=== PATIENT | male | born 1935 | race Two or more races ===

== ENCOUNTER 2020-01-05 12:27 | Inpatient (IN) | payer BC ==
[2020-01-05 13:13] LABS: ABSOLUTE EOSINOPHILS # (AUTO) 0.2 10^3/uL (0.0-0.6); ABSOLUTE LYMPHOCYTES (AUTO) 1.4 10^3/uL (0.5-4.7); ABSOLUTE MONOCYTES (AUTO) 0.3 10^3/uL (0.1-1.4); ABSOLUTE NEUT (AUTO) 1.9 10^3/uL (1.7-8.2); BASOPHILS % (AUTO) 0.6 % (0-2); EOSINOPHILS % (AUTO) 5.8 % (0-6); LYMPHOCYTES % (AUTO) 35.7 % (13-45); MEAN CORPUSCULAR HEMOGLOBIN 29.3 pg (27.0-33.4); MEAN CORPUSCULAR HGB CONC 32.9 g/dL (32.0-36.0); MEAN CORPUSCULAR VOLUME 89 fl (80-97); MONOCYTES % (AUTO) 8.4 % (3-13); PLATELET COUNT 281 10^3/uL (150-450); RED BLOOD COUNT 2.13 10^6/uL (4.35-5.55); RED CELL DISTRIBUTION WIDTH 14.6 % (11.5-14.0); SEGMENTED NEUTROPHILS % (AUTO) 49.5 % (42-78); TOTAL CELLS COUNTED % (AUTO) 100 %; WHITE BLOOD COUNT 3.9 10^3/uL (4.0-10.5)
[2020-01-05 13:18] LABS: HEMOGLOBIN 6.2 g/dL (13.5-17.0)
[2020-01-05 13:36] LABS: ALBUMIN 3.1 g/dL (3.5-5.0); ALKALINE PHOSPHATASE 47 U/L (38-126); ANION GAP 6 (5-19); ASPARTATE AMINO TRANSFERASE 22 U/L (17-59); BILIRUBIN,DIRECT 0.2 mg/dL (0.0-0.4); BILIRUBIN,TOTAL 0.2 mg/dL (0.2-1.3); BLOOD UREA NITROGEN 40 mg/dL (7-20); CALCIUM 9.1 mg/dL (8.4-10.2); CARBON DIOXIDE 25 mmol/L (22-30); CHLORIDE 105 mmol/L (98-107); CREATINE KINASE 30 U/L (55-170); CREATINE KINASE MB 0.81 ng/mL (<4.55); GLUCOSE 139 mg/dL (75-110); TOTAL PROTEIN 6.2 g/dL (6.3-8.2); TROPONIN I < 0.012 ng/mL
[2020-01-05 13:38] LABS: APPEARANCE,URINE SLIGHTLY-CLOUDY; BILIRUBIN,URINE NEGATIVE (NEGATIVE); COLOR,URINE YELLOW; GLUCOSE, URINE NEGATIVE (NEGATIVE); KETONES,URINE NEGATIVE (NEGATIVE); LEUKOCYTE ESTERASE,URINE MODERATE (NEGATIVE); NITRITE,URINE NEGATIVE (NEGATIVE); PROTEIN,URINE NEGATIVE (NEGATIVE); URINE SPECIFIC GRAVITY 1.015; UROBILINOGEN,URINE NEGATIVE mg/dL (<2.0)
[2020-01-05] MEDS ORDERED: NORMAL SALINE 250 ML IV PRN (14:09)
[2020-01-05] MEDS ORDERED: ACETAMINOPHEN 325 MG TABLET PO PRN (14:22)
[2020-01-05] MEDS ORDERED: IPRATROPIUM/ALBUTEROL 0.5-2.5 MG/3 ML AMPUL NEB PRN (14:22)
[2020-01-05] MEDS ORDERED: TEMAZEPAM 15 MG CAPSULE PO PRN (14:22)
[2020-01-05] MEDS ORDERED: MAG HYDROX/AL HYDROX/SIMETH SUSP 30 ML UDCUP PO PRN (14:22)
[2020-01-05] MEDS ORDERED: ONDANSETRON HCL INJ/PF 4 MG/2 ML SDV IV PRN (14:22)
[2020-01-05] MEDS ORDERED: PROMETHAZINE HCL INJ 25 MG/1 ML VIAL IV PRN (14:22)
[2020-01-05] MEDS ORDERED: OXYCODONE-ACETAMINOPHEN 5-325 MG TABLET PO PRN (14:22)
[2020-01-05] MEDS ORDERED: HYDRALAZINE HCL INJ/PF 20 MG/1 ML SDV IV PRN (14:26)
[2020-01-05] MEDS ORDERED: DEXTROSE 50%-WATER 25 GM/50 ML DISP.SYRIN IV PRN ×2 (14:26)
[2020-01-05] MEDS ORDERED: GLUCAGON,HUMAN RECOMB 1 MG INJ IM PRN (14:26)
[2020-01-05] MEDS ORDERED: DEXTROSE 40% GEL 15 GM TUBE PO PRN ×2 (14:26)
[2020-01-05] MEDS ORDERED: METOPROLOL TARTRATE PF/INJ 5 MG/5 ML SDV IV PRN (14:26)
--- NOTE | 2020-01-05 14:43 | ER Document Report ---
Entered by HAYLEE KEENE SCRIBE 01/05/20 1405 Acting as scribe for:PERLA GARCIA MD ED General - General Chief Complaint: General Weakness Stated Complaint: WEAKNESS Time Seen by Provider: 01/05/20 13:56 Information source: Patient, Relative - Son Notes: 84 year old male presents to the emergency department complaining of weakness and feeling tired. Patient complains of dizziness and being lightheaded. Patient's son stated that he had constipation for a couple of days. Patient was given fiber which helped constipation. Patient's son stated that patient is usually active and walking but the past couple of days he has not walked as much as usual. Patient's son said that patient would ask to sit down and complained of feeling dizzy. After patient sat down for a while, he would feel better. Patient reports that his bowel movements have been normal. PCP: Dr. Leandro Moreira Patient is on Plavix for prior coronary artery stent. - Related Data Allergies/Adverse Reactions: No Known Allergies Allergy (Unverified 01/05/20 13:02) Home Medications: metformin. metoprolol. lisinopril. atorvastatin Past Medical History - General Information source: Patient, Relative - Social History Smoking Status: Never Smoker Cigarette use (# per day): No Chew tobacco use (# tins/day): No Smoking Education Provided: No Frequency of alcohol use: None Drug Abuse: None Lives with: Family Family History: Reviewed & Not Pertinent Patient has suicidal ideation: No Patient has homicidal ideation: No - Past Medical History Cardiac Medical History: Reports: Hx Coronary Artery Disease, Hx Hypercholesterolemia, Hx Hypertension Endocrine Medical History: Reports: Hx Diabetes Mellitus Type 2 Past Surgical History: Reports: Hx Cardiac Catheterization, Hx Coronary Stent Review of Systems - Review of Systems Constitutional: See HPI, Weakness EENT: No symptoms reported Cardiovascular: See HPI, Dizziness, Lightheaded Respiratory: No symptoms reported Gastrointestinal: No symptoms reported Genitourinary: No symptoms reported Male Genitourinary: No symptoms reported Musculoskeletal: No symptoms reported Skin: No symptoms reported Hematologic/Lymphatic: No symptoms reported Neurological/Psychological: No symptoms reported -: Yes All other systems reviewed and negative Physical Exam - Vital signs Vitals: Temp Pulse Resp BP Pulse Ox 98.4 F 76 20 107/52 L 100 01/05/20 12:36 01/05/20 12:36 01/05/20 12:36 01/05/20 12:36 01/05/20 12:36 - Notes Notes: Physical Exam: General: Alert, appears anemic. Nail beds pale. HEENT: Normocephalic. Atraumatic. PERRL. Extraocular movements intact. Oropharynx clear. Pale conjunctiva. Neck: Supple. Non-tender. Respiratory: No respiratory distress. Clear and equal breath sounds bilaterally. Cardiovascular: Regular rate and rhythm. Abdominal: Normal Inspection. Non-tender. No distension. Normal Bowel Sounds. Rectal: Stool firm, sticky and black. Back: No gross abnormalities. Extremities: Moves all four extremities. Upper extremities: Normal inspection. Normal ROM. Lower extremities: Normal inspection. No edema. Normal ROM. Neurological: Normal cognition. AAOx4. Normal speech. Psychological: Normal affect. Normal Mood. Skin: Warm. Dry. Normal color. Course - Vital Signs Vital signs: Temp Pulse Resp BP Pulse Ox 98.4 F 76 18 149/67 H 100 01/05/20 12:36 01/05/20 12:36 01/05/20 14:02 01/05/20 14:02 01/05/20 14:01 - Laboratory Result Diagrams: 01/05/20 12:49 01/05/20 12:49 Laboratory results interpreted by me: 01/05/20 01/05/20 01/05/20 12:49 12:49 13:09 WBC 3.9 L RBC 2.13 L Hgb 6.2 L Hct 19.0 L RDW 14.6 H Sodium 136.3 L BUN 40 H Glucose 139 H POC Glucose 134 H Creatine Kinase 30 L Total Protein 6.2 L Albumin 3.1 L Ur Leukocyte Esterase Crossmatch 01/05/20 01/05/20 13:10 14:13 WBC RBC Hgb Hct RDW Sodium BUN Glucose POC Glucose Creatine Kinase Total Protein Albumin Ur Leukocyte Esterase MODERATE H Crossmatch See Detail - EKG Interpretation by Me EKG shows normal: Sinus rhythm, [place], Intervals, QRS Complexes, ST-T Waves Rate: Normal - 77 Rhythm: NSR [place]/QRS: Left axis deviation When compared to previous EKG there are: Previous EKG unavailable - Consults Dr. Michel Time consulted: 14:16 Consulted provider: will come to ER Discharge - Discharge Clinical Impression: Upper GI bleed, Orthostatic dizziness Anemia Qualifiers: Anemia type: unspecified type Qualified Code(s): D64.9 - Anemia, unspecified Condition: Stable Disposition: ADMITTED INPATIENT Admitting Provider: Anand (Hospitalist) Unit Admitted: Medical Floor Scribe Attestation: 01/05/20 14:21 I personally performed the services described in the documentation, reviewed and edited the documentation which was dictated to the scribe in my presence, and it accurately records my words and actions. I personally performed the services described in the documentation, reviewed and edited the documentation which was dictated to the scribe in my presence, and it accurately records my words and actions.
--- NOTE | 2020-01-05 14:44 | RADIOLOGY REPORT (SQ) ---
EXAM DESCRIPTION: CHEST SINGLE VIEW COMPLETED DATE/TIME: 01/05/2020 1:24 pm REASON FOR STUDY: Weakness, lightheaded, severe anemia COMPARISON: None. EXAM PARAMETERS: NUMBER OF VIEWS: One view. TECHNIQUE: Single frontal radiographic view of the chest acquired. RADIATION DOSE: NA LIMITATIONS: None. FINDINGS: LUNGS AND PLEURA: No opacities, masses or pneumothorax. No pleural effusion. MEDIASTINUM AND HILAR STRUCTURES: No masses. Contour normal. HEART AND VASCULAR STRUCTURES: Heart normal in size. Normal vasculature. BONES: No acute findings. HARDWARE: None in the chest. OTHER: No other significant finding. IMPRESSION: NO ACUTE RADIOGRAPHIC FINDING IN THE CHEST. TECHNICAL DOCUMENTATION: JOB ID: [id number] [email or web address] All Rights Reserved Reading location - IP/workstation name: [email or web address]
[2020-01-05 15:08] LABS: ABSOLUTE RETICS # 0.034 10^6/uL (0.028-0.122); RETICULOCYTE COUNT (AUTO) 1.62 % (0.66-2.85)
--- NOTE | 2020-01-05 15:52 | PDOC H&P ---
History of Present Illness Admission Date/PCP: 01/05/20 14:46 MARYBETH MC MD History of Present Illness: LUIS ENRIQUE KWONG is a 84 year old male past medical history of CAD status post stent placement x6 years, diabetes, hypertension, hyperlipidemia, presenting to ED complaining of fatigue and loss of energy for the last 3 to 4 days. Patient has been constipated for the last several days, 3 days ago was a started on some bowel regimen after which he had a bowel movement and says that he has noticed that he is feeling progressively weak and has to take breaks when doing his ADLs. Denies any history of anemia, not on iron supplement, denies noticing any melena, nosebleeds, hematuria, hematochezia, hematemesis, easy bruising, easy bleeding, nosebleeds, GERD, GI malignancy, does not remember if he had a colonoscopy in the past, has noticed some weight changes and also early satiety for the last several months. Denies any chest pain, shortness of breath, nausea, vomiting, diarrhea, numbness, tingling, headache, focal neurological symptoms, or any urinary symptoms. In ED he was found to have hemoglobin of 6.2, with a stool guaiac positive and hospital was consulted for admission. Past Medical History Cardiac Medical History: Reports: Coronary Artery Disease, Hyperlipidema, Hypertension Endocrine Medical History: Reports: Diabetes Mellitus Type 2 Past Surgical History Past Surgical History: Reports: Cardiac Catheterization, Coronary Stent Social History Lives with: Family Smoking Status: Never Smoker Electronic Cigarette use?: No Family History Family History: Reviewed & Not Pertinent Parental Family History Reviewed: Yes Children Family History Reviewed: Yes Sibling(s) Family History Reviewed.: Yes Medication/Allergy Home Medications: Atorvastatin Calcium [Lipitor 40 mg Tablet] 40 mg PO QHS 01/05/20 Clopidogrel Bisulfate [Plavix 75 mg Tablet] 75 mg PO DAILY 01/05/20 Lisinopril [Zestril] 10 mg PO DAILY 01/05/20 Metformin HCl [Glucophage] 1,000 mg PO Q12 01/05/20 Metoprolol Succinate [Toprol Xl 25 mg Tab.sr] 12.5 mg PO DAILY 01/05/20 Allergies/Adverse Reactions: No Known Allergies Allergy (Unverified 01/05/20 13:02) Physical Exam Vital Signs: Temp Pulse Resp BP Pulse Ox 98.4 F 76 18 149/67 H 100 02/08/20 12:36 01/05/20 12:36 01/05/20 14:02 01/05/20 14:02 01/05/20 14:01 Intake & Output 01/04/20 01/05/20 01/06/20 06:59 06:59 06:59 Weight 69.2 kg General appearance: PRESENT: no acute distress, well-developed, well-nourished Head exam: PRESENT: atraumatic, normocephalic Respiratory exam: PRESENT: clear to auscultation viviana. ABSENT: rales, rhonchi, wheezes Cardiovascular exam: PRESENT: RRR. ABSENT: diastolic murmur, rubs, systolic murmur Pulses: PRESENT: normal dorsalis pedis pul GI/Abdominal exam: PRESENT: normal bowel sounds, soft. ABSENT: distended, guarding, mass, organolmegaly, rebound, tenderness Extremities exam: PRESENT: full ROM. ABSENT: calf tenderness, clubbing, pedal edema Neurological exam: PRESENT: alert, awake, oriented to person, oriented to place, oriented to time, oriented to situation, CN II-XII grossly intact. ABSENT: motor sensory deficit Results Laboratory Results: 01/05/20 12:49 01/05/20 12:49 01/05/20 01/05/20 01/05/20 12:49 12:49 12:49 WBC 3.9 L RBC 2.13 L Hgb 6.2 L Hct 19.0 L MCV 89 MCH 29.3 MCHC 32.9 RDW 14.6 H Plt Count 281 Seg Neutrophils % 49.5 Retic Count (auto) 1.62 Sodium 136.3 L Potassium 4.0 Chloride 105 Carbon Dioxide 25 Anion Gap 6 BUN 40 H Creatinine 1.13 Est GFR ( Amer) > 60 Glucose 139 H Calcium 9.1 Total Bilirubin 0.2 AST 22 Alkaline Phosphatase 47 Total Protein 6.2 L Albumin 3.1 L Urine Color Urine Appearance Urine pH Ur Specific [place] Urine Protein Urine Glucose (UA) Urine Ketones Urine Blood Urine Nitrite Ur Leukocyte Esterase Urine WBC (Auto) Urine RBC (Auto) 01/05/20 13:10 WBC RBC Hgb Hct MCV MCH MCHC RDW Plt Count Seg Neutrophils % Retic Count (auto) Sodium Potassium Chloride Carbon Dioxide Anion Gap BUN Creatinine Est GFR ( Amer) Glucose Calcium Total Bilirubin AST Alkaline Phosphatase Total Protein Albumin Urine Color YELLOW Urine Appearance SLIGHTLY-CLOUDY Urine pH 5.0 Ur Specific [place] 1.015 Urine Protein NEGATIVE Urine Glucose (UA) NEGATIVE Urine Ketones NEGATIVE Urine Blood NEGATIVE Urine Nitrite NEGATIVE Ur Leukocyte Esterase MODERATE H Urine WBC (Auto) 15 Urine RBC (Auto) 1 01/05/20 01/05/20 12:49 12:49 Creatine Kinase 30 L CK-MB (CK-2) 0.81 Troponin I < 0.012 Impressions: Chest X-Ray 01/05/20 14:10 IMPRESSION: NO ACUTE RADIOGRAPHIC FINDING IN THE CHEST. Assessment and Plan - Diagnosis (1) Upper gastrointestinal hemorrhage Is this a current diagnosis for this admission?: Yes Plan: Denies any easy bleeding, nosebleeds, hematemesis, hemoptysis, easy bruising, hematochezia or any hematuria. Denies any history of GERD or GI malignancy. Likely chronic upper GI bleed given the insidious onset. Given history of recent weight loss and early satiety highly suspicious for GI malignancy. Admitted to floor, supportive transfusion, goal of hemoglobin 8-9 given history of CAD. Daily H&H. Consult gastroenterology for possible upper and lower GI endoscopy. Hold Plavix and aspirin. Avoid NSAIDs. (2) CAD (coronary artery disease) Qualifiers: Coronary Disease-Associated Artery/Lesion type: [place] artery Is this a current diagnosis for this admission?: Yes Plan: Denies any anginal symptoms. Troponins negative. We will restart lisinopril, beta-blockers statins. Hold antiplatelets given acute GI bleed. (3) Hypertension Is this a current diagnosis for this admission?: Yes Plan: Euvolemic. Normotensive. Restart lisinopril metoprolol. PRN hydralazine metoprolol IV. Adjust meds as needed. Outpatient PCP follow-up. (4) Hyperlipidemia Is this a current diagnosis for this admission?: Yes Plan: Diet and lifestyle modification commended. Restart home meds. (5) UTI (urinary tract infection) Qualifiers: Urinary tract infection type: acute cystitis Is this a current diagnosis for this admission?: Yes Plan: Likely due to gram-negative rods including E. coli. We will start on p.o. Keflex. Follow-up urine culture. (6) Anemia Qualifiers: Anemia type: iron deficiency Iron deficiency anemia type: chronic blood loss Qualified Code(s): D50.0 - Iron deficiency anemia secondary to blood loss (chronic) Is this a current diagnosis for this admission?: Yes Plan: Plan as per #1.
[2020-01-05] MEDS: INSULIN LISPRO 100 UNIT/ML 3 ML VIAL SUBCUT SCH ×2 (16:09→21:12)
[2020-01-05 16:18] LABS: FOLATE 4.99 ng/mL (>2.76)
[2020-01-05] MEDS: PANTOPRAZOLE SODIUM 40 MG TABLET.DR PO SCH (17:01)
--- NOTE | 2020-01-05 17:22 | PDOC CONSULTATION ---
Consultation Consult Date: 01/05/20 Attending physician:: PERLA GARCIA Provider Consulted: DESMOND VILLATORO History of Present Illness Admission Date/PCP: 01/05/20 14:46 MARYBETH MC MD History of Present Illness: LUIS ENRIQUE KWONG is a 84 year old male past medical history of CAD status post stent placement x6 years, diabetes, hypertension, hyperlipidemia, presenting to ED complaining of fatigue and loss of energy for the last 3 to 4 days. Patient has been constipated for the last several days, 3 days ago was a started on some bowel regimen after which he had a bowel movement and says that he has noticed that he is feeling progressively weak and has to take breaks when doing his ADLs. Denies any history of anemia, not on iron supplement, denies noticing any melena, nosebleeds, hematuria, hematochezia, hematemesis, easy bruising, easy bleeding, nosebleeds, GERD, GI malignancy, does not remember if he had a colonoscopy in the past, has noticed some weight changes and also early satiety for the last several months. Denies any chest pain, shortness of breath, nausea, vomiting, diarrhea, numbness, tingling, headache, focal neurological symptoms, or any urinary symptoms. Past Medical History Cardiac Medical History: Reports: Coronary Artery Disease, Hyperlipidema, Hypertension Endocrine Medical History: Reports: Diabetes Mellitus Type 2 Past Surgical History Past Surgical History: Reports: Cardiac Catheterization, Coronary Stent Social History Lives with: Family Smoking Status: Never Smoker Electronic Cigarette use?: No - Advance Directive Resuscitation Status: Full Code Family History Family History: Reviewed & Not Pertinent Parental Family History Reviewed: No Children Family History Reviewed: NA Sibling(s) Family History Reviewed.: NA Medication/Allergy Home Medications: Atorvastatin Calcium [Lipitor 40 mg Tablet] 40 mg PO QHS 01/05/20 Clopidogrel Bisulfate [Plavix 75 mg Tablet] 75 mg PO DAILY 01/05/20 Lisinopril [Zestril] 10 mg PO DAILY 01/05/20 Metformin HCl [Glucophage] 1,000 mg PO Q12 01/05/20 Metoprolol Succinate [Toprol Xl 25 mg Tab.sr] 12.5 mg PO DAILY 01/05/20 Allergies/Adverse Reactions: No Known Allergies Allergy (Unverified 01/05/20 13:02) Review of Systems Constitutional: PRESENT: as per HPI, anorexia, weakness, weight loss Eyes: ABSENT: as per HPI, visual disturbances, other Ears: ABSENT: as per HPI, hearing changes, other Nose, Mouth, and Throat: ABSENT: as per HPI, headache(s), mouth pain, sore th roat, vertigo, other Breasts: ABSENT: as per HPI, other Cardiovascular: ABSENT: as per HPI, chest pain, dyspnea on exertion, edema, orthropnea, palpitations, other Respiratory: ABSENT: as per HPI, cough, dyspnea, hemoptysis, sputum, other Gastrointestinal: PRESENT: bloating, hematochezia Genitourinary: ABSENT: as per HPI, difficulty urinating, dysuria, hematuria, nocturia, other Musculoskeletal: PRESENT: muscle weakness Integumentary: ABSENT: as per HPI, diaphoresis, erythema, lesions, pruritus, rash, wounds, other Neurological: ABSENT: as per HPI, abnormal gait, abnormal movements, abnormal s peech, confusion, convulsions, dizziness, focal weakness, frequent falls, lack of coordination, memory loss, numbness, paresthesias, restless legs, syncope, tingling, tremor(s), vertigo, weakness, other Psychiatric: ABSENT: as per HPI, anxiety, depression, hallucinations, homidical ideation, suicidal ideation, other Endocrine: ABSENT: as per HPI, cold intolerance, flushing, heat intolerance, menstrual abnormalities, polydipsia, polyphagia, polyuria, other Hematologic/Lymphatic: PRESENT: easy bleeding, easy bruising Allergic/Immunologic: ABSENT: as per HPI, seasonal rhinorrhea, other Physical Exam Vital Signs: Temp Pulse Resp BP Pulse Ox 97.6 F 78 17 155/62 H 100 01/05/20 17:10 01/05/20 17:10 01/05/20 17:10 01/05/20 17:10 01/05/20 17:10 Intake & Output 01/04/20 01/05/20 01/06/20 06:59 06:59 06:59 Intake Total 0 Balance 0 Weight 69.2 kg General appearance: PRESENT: no acute distress Head exam: PRESENT: normocephalic Eye exam: PRESENT: conjunctiva pale, EOMI Ear exam: PRESENT: normal external ear exam Mouth exam: PRESENT: dry mucosa Teeth exam: PRESENT: poor dentation Neck exam: PRESENT: full ROM Respiratory exam: PRESENT: clear to auscultation viviana Cardiovascular exam: PRESENT: RRR Pulses: PRESENT: +1 pedal pulses bilateral GI/Abdominal exam: PRESENT: soft Rectal exam: PRESENT: heme (-) stool Extremities exam: PRESENT: full ROM Musculoskeletal exam: PRESENT: full ROM Neurological exam: PRESENT: alert Psychiatric exam: PRESENT: appropriate affect Skin exam: PRESENT: dry Results Laboratory Results: 01/05/20 12:49 01/05/20 12:49 01/05/20 01/05/20 01/05/20 12:49 12:49 12:49 WBC 3.9 L RBC 2.13 L Hgb 6.2 L Hct 19.0 L MCV 89 MCH 29.3 MCHC 32.9 RDW 14.6 H Plt Count 281 Seg Neutrophils % 49.5 Retic Count (auto) 1.62 Sodium 136.3 L Potassium 4.0 Chloride 105 Carbon Dioxide 25 Anion Gap 6 BUN 40 H Creatinine 1.13 Est GFR ( Amer) > 60 Glucose 139 H Calcium 9.1 Iron TIBC % Saturation Ferritin Total Bilirubin 0.2 AST 22 Alkaline Phosphatase 47 Total Protein 6.2 L Albumin 3.1 L Vitamin B12 Folate Urine Color Urine Appearance Urine pH Ur Specific [place] Urine Protein Urine Glucose (UA) Urine Ketones Urine Blood Urine Nitrite Ur Leukocyte Esterase Urine WBC (Auto) Urine RBC (Auto) Blood Type Antibody Screen 01/05/20 01/05/20 01/05/20 12:49 13:10 14:13 WBC RBC Hgb Hct MCV MCH MCHC RDW Plt Count Seg Neutrophils % Retic Count (auto) Sodium Potassium Chloride Carbon Dioxide Anion Gap BUN Creatinine Est GFR ( Amer) Glucose Calcium Iron 29.0 L TIBC 302 % Saturation 10 Ferritin 13.50 L Total Bilirubin AST Alkaline Phosphatase Total Protein Albumin Vitamin B12 < 159.0 L Folate 4.99 Urine Color YELLOW Urine Appearance SLIGHTLY-CLOUDY Urine pH 5.0 Ur Specific [place] 1.015 Urine Protein NEGATIVE Urine Glucose (UA) NEGATIVE Urine Ketones NEGATIVE Urine Blood NEGATIVE Urine Nitrite NEGATIVE Ur Leukocyte Esterase MODERATE H Urine WBC (Auto) 15 Urine RBC (Auto) 1 Blood Type A POSITIVE Antibody Screen NEGATIVE 01/05/20 01/05/20 12:49 12:49 Creatine Kinase 30 L CK-MB (CK-2) 0.81 Troponin I < 0.012 Impressions: Chest X-Ray 01/05/20 14:10 IMPRESSION: NO ACUTE RADIOGRAPHIC FINDING IN THE CHEST. Assessment & Plan - Plan Summary Plan Summary: new onset anemia, wt loss, early satiety hematochezia plan pt being admitted for iv blood txn and bowel prep will plan on upper and lower endscopy when stable
[2020-01-05] MEDS ORDERED: FERRIC CARBOXYMALTOSE INJ 750 MG/15 ML VIAL IV ONE (17:34)
[2020-01-05] MEDS ORDERED: CYANOCOBALAMIN (VITAMIN B-12) INJ 1000 MCG/1 ML VIAL IM ONE (18:00)
[2020-01-05] MEDS ORDERED: CYANOCOBALAMIN (VITAMIN B-12) INJ 1000 MCG/1 ML VIAL ONE (20:43)
[2020-01-05] MEDS ORDERED: CEPHALEXIN 500 MG CAPSULE ONE (20:43)
[2020-01-05] MEDS: CEPHALEXIN 500 MG CAPSULE PO SCH (21:11)
[2020-01-05] MEDS: ATORVASTATIN CALCIUM 40 MG TABLET PO SCH (21:13)
--- NOTE | 2020-01-05 21:23 | EKG REPORT ---
SEVERITY:- ABNORMAL ECG - SINUS RHYTHM LEFT AXIS DEVIATION : Confirmed by: Susie Rodríguez MD 05-Jan-2020 21:22:48
[2020-01-06] MEDS: NORMAL SALINE 1000 ML 1,000 ML IV PRN ×3 (01:13→22:20)
[2020-01-06 03:15] LABS: ABSOLUTE EOSINOPHILS # (AUTO) 0.3 10^3/uL (0.0-0.6); ABSOLUTE LYMPHOCYTES (AUTO) 1.6 10^3/uL (0.5-4.7); ABSOLUTE MONOCYTES (AUTO) 0.4 10^3/uL (0.1-1.4); ABSOLUTE NEUT (AUTO) 3.2 10^3/uL (1.7-8.2); BASOPHILS % (AUTO) 0.4 % (0-2); EOSINOPHILS % (AUTO) 4.9 % (0-6); HEMATOCRIT 28.4 % (37.9-51.0); LYMPHOCYTES % (AUTO) 29.1 % (13-45); MEAN CORPUSCULAR HEMOGLOBIN 29.3 pg (27.0-33.4); MEAN CORPUSCULAR HGB CONC 34.1 g/dL (32.0-36.0); MEAN CORPUSCULAR VOLUME 86 fl (80-97); MONOCYTES % (AUTO) 7.6 % (3-13); PLATELET COUNT 236 10^3/uL (150-450); RED BLOOD COUNT 3.31 10^6/uL (4.35-5.55); RED CELL DISTRIBUTION WIDTH 14.8 % (11.5-14.0); TOTAL CELLS COUNTED % (AUTO) 100 %; WHITE BLOOD COUNT 5.5 10^3/uL (4.0-10.5)
[2020-01-06 03:16] LABS: HEMOGLOBIN 9.7 g/dL (13.5-17.0)
[2020-01-06 03:41] LABS: ANION GAP 6 (5-19); BLOOD UREA NITROGEN 35 mg/dL (7-20); CALCIUM 8.9 mg/dL (8.4-10.2); CARBON DIOXIDE 24 mmol/L (22-30); CHLORIDE 108 mmol/L (98-107); CHOLESTEROL 108.01 mg/dL (0-200); GLUCOSE 87 mg/dL (75-110); POTASSIUM 3.9 mmol/L (3.6-5.0); TRIGLYCERIDES 113 mg/dL (<150)
[2020-01-06 03:52] LABS: DIRECT LDL 58 mg/dL (<100)
[2020-01-06] MEDS ORDERED: CEPHALEXIN 500 MG CAPSULE ONE (06:00)
[2020-01-06] MEDS: PANTOPRAZOLE SODIUM 40 MG TABLET.DR PO SCH ×2 (06:07→16:44)
[2020-01-06] MEDS: CEPHALEXIN 500 MG CAPSULE PO SCH ×3 (06:09→21:35)
[2020-01-06] MEDS ORDERED: CALCIUM GLUCONATE 1000 MG/10 ML INJ IV ONE (08:11)
[2020-01-06] MEDS: INSULIN LISPRO 100 UNIT/ML 3 ML VIAL SUBCUT SCH ×4 (08:25→21:33)
[2020-01-06] MEDS ORDERED: CALCIUM GLUCONATE 1 GM/NS 50 ML RTU IV ONE (09:45)
[2020-01-06] MEDS: LISINOPRIL 10 MG TABLET PO SCH (10:11)
[2020-01-06] MEDS: METOPROLOL SUCCINATE 25 MG TAB.SR.24H PO SCH (10:11)
[2020-01-06] MEDS: CYANOCOBALAMIN (VITAMIN B-12) INJ 1000 MCG/1 ML VIAL IM SCH (10:11)
--- NOTE | 2020-01-06 10:21 | PDOC PROGRESS REPORT ---
Subjective Progress Note for:: 01/06/20 Subjective:: no c/o, no n/v Reason For Visit: UPPER GI BLEED, ANEMIA, UTI Physical Exam Vital Signs: Temp Pulse Resp BP Pulse Ox 97.4 F 74 14 143/75 H 100 01/06/20 08:00 01/06/20 08:17 01/06/20 08:17 01/06/20 08:00 01/06/20 08:17 Intake & Output 01/05/20 01/06/20 01/07/20 06:59 06:59 06:59 Intake Total 650 Balance 650 Weight 69.2 kg General appearance: PRESENT: no acute distress Respiratory exam: PRESENT: clear to auscultation viviana Cardiovascular exam: PRESENT: RRR GI/Abdominal exam: PRESENT: normal bowel sounds, soft Results Laboratory Results: 01/06/20 02:50 01/06/20 02:59 01/05/20 01/05/20 01/05/20 12:49 12:49 12:49 WBC 3.9 L RBC 2.13 L Hgb 6.2 L Hct 19.0 L MCV 89 MCH 29.3 MCHC 32.9 RDW 14.6 H Plt Count 281 Seg Neutrophils % 49.5 Retic Count (auto) 1.62 Sodium 136.3 L Potassium 4.0 Chloride 105 Carbon Dioxide 25 Anion Gap 6 BUN 40 H Creatinine 1.13 Est GFR ( Amer) > 60 Glucose 139 H Calcium 9.1 Magnesium Iron TIBC % Saturation Ferritin Total Bilirubin 0.2 AST 22 Alkaline Phosphatase 47 Total Protein 6.2 L Albumin 3.1 L Triglycerides Cholesterol LDL Cholesterol Direct VLDL Cholesterol HDL Cholesterol Vitamin B12 Folate Urine Color Urine Appearance Urine pH Ur Specific [place] Urine Protein Urine Glucose (UA) Urine Ketones Urine Blood Urine Nitrite Ur Leukocyte Esterase Urine WBC (Auto) Urine RBC (Auto) Blood Type Antibody Screen 01/05/20 01/05/20 01/05/20 12:49 13:10 14:13 WBC RBC Hgb Hct MCV MCH MCHC RDW Plt Count Seg Neutrophils % Retic Count (auto) Sodium Potassium Chloride Carbon Dioxide Anion Gap BUN Creatinine Est GFR ( Amer) Glucose Calcium Magnesium Iron 29.0 L TIBC 302 % Saturation 10 Ferritin 13.50 L Total Bilirubin AST Alkaline Phosphatase Total Protein Albumin Triglycerides Cholesterol LDL Cholesterol Direct VLDL Cholesterol HDL Cholesterol Vitamin B12 < 159.0 L Folate 4.99 Urine Color YELLOW Urine Appearance SLIGHTLY-CLOUDY Urine pH 5.0 Ur Specific [place] 1.015 Urine Protein NEGATIVE Urine Glucose (UA) NEGATIVE Urine Ketones NEGATIVE Urine Blood NEGATIVE Urine Nitrite NEGATIVE Ur Leukocyte Esterase MODERATE H Urine WBC (Auto) 15 Urine RBC (Auto) 1 Blood Type A POSITIVE Antibody Screen NEGATIVE 01/06/20 01/06/20 02:50 02:59 WBC 5.5 RBC 3.31 L Hgb 9.7 L D Hct 28.4 L MCV 86 MCH 29.3 MCHC 34.1 RDW 14.8 H Plt Count 236 Seg Neutrophils % 58.0 Retic Count (auto) Sodium 138.3 Potassium 3.9 Chloride 108 H Carbon Dioxide 24 Anion Gap 6 BUN 35 H Creatinine 0.95 Est GFR ( Amer) > 60 Glucose 87 Calcium 8.9 Magnesium 2.0 Iron TIBC % Saturation Ferritin Total Bilirubin AST Alkaline Phosphatase Total Protein Albumin Triglycerides 113 Cholesterol 108.01 LDL Cholesterol Direct 58 VLDL Cholesterol 23.0 HDL Cholesterol 38 L Vitamin B12 Folate Urine Color Urine Appearance Urine pH Ur Specific [place] Urine Protein Urine Glucose (UA) Urine Ketones Urine Blood Urine Nitrite Ur Leukocyte Esterase Urine WBC (Auto) Urine RBC (Auto) Blood Type Antibody Screen 01/05/20 01/05/20 12:49 12:49 Creatine Kinase 30 L CK-MB (CK-2) 0.81 Troponin I < 0.012 Impressions: Chest X-Ray 01/05/20 14:10 IMPRESSION: NO ACUTE RADIOGRAPHIC FINDING IN THE CHEST. Assessment & Plan - Diagnosis (1) Melena Is this a current diagnosis for this admission?: Yes (2) Weight loss Is this a current diagnosis for this admission?: Yes (3) Anemia Qualifiers: Anemia type: iron deficiency Iron deficiency anemia type: chronic blood loss Qualified Code(s): D50.0 - Iron deficiency anemia secondary to blood loss (chronic) Is this a current diagnosis for this admission?: Yes - Time Time Spent with patient: 25-34 minutes - Plan Summary Plan Summary: Assessment: Anemia with melena of unknown cause Weight loss with poor appetite in the past few months for unknown cause Patient never had upper or lower endoscopy No abdominal pain Hemoglobin hematocrit have improved appropriately following administration of 2 units of packed red blood cells one 6.2 in 19-9.7 and 20.4, respectively UTI treated with Keflex Plan: Clear liquid diet GoLYTELY bowel prep with Dulcolax p.o. this afternoon Fleet enema in the morning N.p.o. after midnight EGD colonoscopy tomorrow with biopsy under IV sedation Pager, risks, benefits, explained to the patient, he understands all the above, his questions answered to his satisfaction, and he decides to proceed Check blood work tomorrow
--- NOTE | 2020-01-06 14:40 | PDOC PROGRESS REPORT ---
Subjective Progress Note for:: 01/06/20 Subjective:: LUIS ENRIQUE KWONG is a 84 year old male past medical history of CAD status post stent placement x6 years, diabetes, hypertension, hyperlipidemia, presenting to ED complaining of fatigue and loss of energy for the last 3 to 4 days. Patient has been constipated for the last several days, 3 days ago was a started on some bowel regimen after which he had a bowel movement and says that he has noticed that he is feeling progressively weak and has to take breaks when doing his ADLs. Denies any history of anemia, not on iron supplement, denies noticing any melena, nosebleeds, hematuria, hematochezia, hematemesis, easy bruising, easy bleeding, nosebleeds, GERD, GI malignancy, does not remember if he had a colonoscopy in the past, has noticed some weight changes and also early satiety for the last several months. Denies any chest pain, shortness of breath, nausea, vomiting, diarrhea, numbness, tingling, headache, focal neurological symptoms, or any urinary symptoms. In ED he was found to have hemoglobin of 6.2, with a stool guaiac positive and hospital was consulted for admission. 01/06/2020. No acute events overnight. Comfortably resting in bed in no apparent distress. Accompanied by his family. Reason For Visit: UPPER GI BLEED, ANEMIA, UTI Physical Exam Vital Signs: Temp Pulse Resp BP Pulse Ox 97.6 F 74 16 118/65 100 01/06/20 12:00 01/06/20 12:00 01/06/20 12:00 01/06/20 12:00 01/06/20 12:00 Intake & Output 01/05/20 01/06/20 01/07/20 06:59 06:59 06:59 Intake Total 650 1360 Balance 650 1360 Weight 69.2 kg General appearance: PRESENT: no acute distress, well-developed, well-nourished Head exam: PRESENT: atraumatic, normocephalic Respiratory exam: PRESENT: clear to auscultation viviana. ABSENT: rales, rhonchi, wheezes Cardiovascular exam: PRESENT: RRR. ABSENT: diastolic murmur, rubs, systolic murmur GI/Abdominal exam: PRESENT: normal bowel sounds, soft. ABSENT: distended, guarding, mass, organolmegaly, rebound, tenderness Extremities exam: PRESENT: full ROM. ABSENT: calf tenderness, clubbing, pedal edema Neurological exam: PRESENT: alert, awake, oriented to person, oriented to place, oriented to time, oriented to situation, CN II-XII grossly intact. ABSENT: motor sensory deficit Results Laboratory Results: 01/06/20 02:50 01/06/20 02:59 01/05/20 01/05/20 01/05/20 12:49 12:49 14:13 WBC RBC Hgb Hct MCV MCH MCHC RDW Plt Count Seg Neutrophils % Retic Count (auto) 1.62 Sodium Potassium Chloride Carbon Dioxide Anion Gap BUN Creatinine Est GFR ( Amer) Glucose Calcium Magnesium Iron 29.0 L TIBC 302 % Saturation 10 Ferritin 13.50 L Triglycerides Cholesterol LDL Cholesterol Direct VLDL Cholesterol HDL Cholesterol Vitamin B12 < 159.0 L Folate 4.99 Blood Type A POSITIVE Antibody Screen NEGATIVE 01/06/20 01/06/20 02:50 02:59 WBC 5.5 RBC 3.31 L Hgb 9.7 L D Hct 28.4 L MCV 86 MCH 29.3 MCHC 34.1 RDW 14.8 H Plt Count 236 Seg Neutrophils % 58.0 Retic Count (auto) Sodium 138.3 Potassium 3.9 Chloride 108 H Carbon Dioxide 24 Anion Gap 6 BUN 35 H Creatinine 0.95 Est GFR ( Amer) > 60 Glucose 87 Calcium 8.9 Magnesium 2.0 Iron TIBC % Saturation Ferritin Triglycerides 113 Cholesterol 108.01 LDL Cholesterol Direct 58 VLDL Cholesterol 23.0 HDL Cholesterol 38 L Vitamin B12 Folate Blood Type Antibody Screen 01/05/20 01/05/20 12:49 12:49 Creatine Kinase 30 L CK-MB (CK-2) 0.81 Troponin I < 0.012 Impressions: Chest X-Ray 01/05/20 14:10 IMPRESSION: NO ACUTE RADIOGRAPHIC FINDING IN THE CHEST. Assessment and Plan - Diagnosis (1) Upper gastrointestinal hemorrhage Is this a current diagnosis for this admission?: Yes Plan: Denies any easy bleeding, nosebleeds, hematemesis, hemoptysis, easy bruising, hematochezia or any hematuria. Denies any history of GERD or GI malignancy. Likely chronic upper GI bleed given the insidious onset. Given history of recent weight loss and early satiety highly suspicious for GI malignancy. Admitted to floor, supportive transfusion, goal of hemoglobin 8-9 given history of CAD. Daily H&H. Hold Plavix and aspirin. Avoid NSAIDs. Surgery on board. Upper and lower GI endoscopy scheduled for tomorrow. (2) CAD (coronary artery disease) Qualifiers: Coronary Disease-Associated Artery/Lesion type: [place] artery Is this a current diagnosis for this admission?: Yes Plan: Denies any anginal symptoms. Troponins negative. We will restart lisinopril, beta-blockers statins. Hold antiplatelets given acute GI bleed. (3) Hypertension Is this a current diagnosis for this admission?: Yes Plan: Euvolemic. Normotensive. Restart lisinopril metoprolol. PRN hydralazine metoprolol IV. Adjust meds as needed. Outpatient PCP follow-up. (4) Hyperlipidemia Is this a current diagnosis for this admission?: Yes Plan: Diet and lifestyle modification commended. Restart home meds. (5) UTI (urinary tract infection) Qualifiers: Urinary tract infection type: acute cystitis Is this a current diagnosis for this admission?: Yes Plan: Likely due to gram-negative rods including E. coli. Day 2/3 p.o. Keflex. Follow-up urine culture. (6) Anemia Qualifiers: Anemia type: iron deficiency Iron deficiency anemia type: chronic blood loss Qualified Code(s): D50.0 - Iron deficiency anemia secondary to blood loss (chronic) Is this a current diagnosis for this admission?: Yes Plan: Plan as per #1.
[2020-01-06] MEDS ORDERED: PEG 3350/NA SULF,BICARB,CL/KCL 4000 ML PO ONE (16:00)
[2020-01-06] MEDS ORDERED: BISACODYL 5 MG TABEC PO ONE (16:00)
[2020-01-06] MEDS: ATORVASTATIN CALCIUM 40 MG TABLET PO SCH (21:34)
[2020-01-07] MEDS: PANTOPRAZOLE SODIUM 40 MG TABLET.DR PO SCH ×2 (05:07→17:50)
[2020-01-07] MEDS: CEPHALEXIN 500 MG CAPSULE PO SCH ×3 (05:07→22:12)
[2020-01-07 05:47] LABS: ABSOLUTE EOSINOPHILS # (AUTO) 0.3 10^3/uL (0.0-0.6); ABSOLUTE LYMPHOCYTES (AUTO) 1.6 10^3/uL (0.5-4.7); ABSOLUTE MONOCYTES (AUTO) 0.5 10^3/uL (0.1-1.4); ABSOLUTE NEUT (AUTO) 3.3 10^3/uL (1.7-8.2); BASOPHILS % (AUTO) 0.7 % (0-2); EOSINOPHILS % (AUTO) 5.6 % (0-6); HEMATOCRIT 26.3 % (37.9-51.0); LYMPHOCYTES % (AUTO) 28.7 % (13-45); MEAN CORPUSCULAR HEMOGLOBIN 29.2 pg (27.0-33.4); MEAN CORPUSCULAR VOLUME 86 fl (80-97); MONOCYTES % (AUTO) 8.2 % (3-13); PLATELET COUNT 252 10^3/uL (150-450); RED BLOOD COUNT 3.07 10^6/uL (4.35-5.55); RED CELL DISTRIBUTION WIDTH 15.4 % (11.5-14.0); SEGMENTED NEUTROPHILS % (AUTO) 56.8 % (42-78); TOTAL CELLS COUNTED % (AUTO) 100 %; WHITE BLOOD COUNT 5.7 10^3/uL (4.0-10.5)
[2020-01-07] MEDS ORDERED: NA PHOS,M-B/NA PHOS,DI-BA (ADULT) 133 ML ENEMA PR ONE ×2 (06:00)
[2020-01-07 06:03] LABS: BLOOD UREA NITROGEN 21 mg/dL (7-20); CALCIUM 8.8 mg/dL (8.4-10.2); CARBON DIOXIDE 24 mmol/L (22-30); GLUCOSE 78 mg/dL (75-110); POTASSIUM 4.1 mmol/L (3.6-5.0)
[2020-01-07 06:08] LABS: CHLORIDE 110 mmol/L (98-107)
[2020-01-07 06:16] LABS: ANION GAP 5 (5-19)
[2020-01-07] MEDS ORDERED: PROPOFOL INJ 200 MG/20 ML VIAL IV ONE (07:44)
[2020-01-07] MEDS: METOPROLOL SUCCINATE 25 MG TAB.SR.24H PO SCH (09:09)
[2020-01-07] MEDS: LISINOPRIL 10 MG TABLET PO SCH (09:09)
[2020-01-07] MEDS: CYANOCOBALAMIN (VITAMIN B-12) INJ 1000 MCG/1 ML VIAL IM SCH (09:10)
[2020-01-07] MEDS: INSULIN LISPRO 100 UNIT/ML 3 ML VIAL SUBCUT SCH ×4 (09:10→22:08)
[2020-01-07] MEDS: NORMAL SALINE 1000 ML 1,000 ML IV PRN (09:14)
[2020-01-07] MEDS: FENTANYL CITRATE INJ/PF 100 MCG/2 ML AMPUL ONE ×4 (10:47→14:28)
[2020-01-07] MEDS ORDERED: ONDANSETRON HCL INJ/PF 4 MG/2 ML SDV ONE (13:22)
[2020-01-07] MEDS ORDERED: FLUMAZENIL INJ 0.5 MG/5 ML VIAL ONE (13:22)
[2020-01-07] MEDS ORDERED: NALOXONE HCL INJ/PF 0.4 MG/1 ML SDV ONE (13:22)
[2020-01-07] MEDS ORDERED: DIPHENHYDRAMINE HCL 50 MG/ML VIAL ONE (13:22)
[2020-01-07] MEDS ORDERED: GLUCAGON,HUMAN RECOMB 1 MG INJ ONE (13:23)
[2020-01-07] MEDS ORDERED: EPINEPHRINE INJ 1 MG/10 ML DISP.SYRIN ONE (13:23)
[2020-01-07] MEDS ORDERED: PROMETHAZINE HCL INJ 25 MG/1 ML VIAL IV PRN (14:00)
[2020-01-07] MEDS ORDERED: INFLUENZA QUAD (6MOS+) 2019-20 VAC 0.5 ML SYR IM ONE (14:03)
[2020-01-07] MEDS: MIDAZOLAM 2 MG/2 ML INJ ONE ×3 (14:05→14:22)
--- NOTE | 2020-01-07 14:45 | Operative Report ---
Nonrecallable Operative Report DATE OF SURGERY: 01/07/20 PREOPERATIVE DIAGNOSIS: Anemia due to unknown cause POSTOPERATIVE DIAGNOSIS: Same; normal EGD and normal colonoscopy to cecum OPERATION: EGD; colonoscopy to cecum SURGEON: ARLETH SHAHID ANESTHESIA: Moderate Sedation TISSUE REMOVED OR ALTERED: Not applicable COMPLICATIONS: None ESTIMATED BLOOD LOSS: Not applicable INTRAOPERATIVE FINDINGS: Normal EGD and normal colonoscopy to cecum: Good bowel preparation PROCEDURE: The procedure was done in the endoscopy suite, the patient was placed in a lateral decubitus on the surgical bed; IV sedation was provided by Dr. Shahid as above, the gastroscope was inserted into the mouth, esophagus, stomach, and first, second, and third portion of the duodenum. The preparation was good, and no masses, polyps, strictures, mucosal changes, or ulcerations were noted. The duodenum was normal. The scope was then slowly withdrawn into the stomach, retroflexed: the fundus and the GE junction appeared to be within the normal limits. The scope was slowly withdrawn into the esophagus which appeared to be normal and removed from the patient mouth without difficulty. The colonoscopy was performed by inserting the scope into the rectum and the several segments of the colon up to the cecum. The preparation was good: no masses, polyps, strictures, mucosal changes, and diverticula were noted. At the level of the rectum, the scope was retroflexed and no lesions were identified and no hemorrhoids seen. The scope was then slowly withdrawn from the cecum to rectum for a duration of approximately 7 minutes and extracted from the rectum. The patient tolerated procedure well and transferred to the recovery room in satisfactory conditions.
--- NOTE | 2020-01-07 14:47 | Progress Note ---
Provider Note Provider Note: Events noted Negative EGD and colonoscopy to cecum. Assessment: No obvious causes for anemia defied on either EGD or colonoscopy Plan: I will sign off. Please call us back with questions.
[2020-01-07 15:42] LABS: INTRINSIC FACTOR ANTIBODY 17.1 AU/mL (0.0-1.1)
--- NOTE | 2020-01-07 15:54 | PDOC PROGRESS REPORT ---
Subjective Progress Note for:: 01/07/20 Subjective:: Follow up for acute blood loss anemia No complaints today Reason For Visit: UPPER GI BLEED, ANEMIA, UTI Physical Exam Vital Signs: Temp Pulse Resp BP Pulse Ox 98.1 F 66 14 162/77 H 100 01/07/20 12:00 01/07/20 15:00 01/07/20 15:00 01/07/20 15:00 01/07/20 15:00 Intake & Output 01/06/20 01/07/20 01/08/20 06:59 06:59 06:59 Intake Total 650 2360 1600 Balance 650 2360 1600 Weight 69.2 kg 69 kg General appearance: PRESENT: no acute distress, other - elderly gentleman Head exam: PRESENT: atraumatic Respiratory exam: PRESENT: clear to auscultation viviana, unlabored. ABSENT: rhonchi, tachypnea Cardiovascular exam: PRESENT: RRR, +S1, +S2 GI/Abdominal exam: PRESENT: soft. ABSENT: tenderness Extremities exam: ABSENT: calf tenderness Musculoskeletal exam: PRESENT: ambulatory Neurological exam: PRESENT: alert, awake, oriented to time, oriented to situation. ABSENT: motor sensory deficit Psychiatric exam: ABSENT: agitated Results Laboratory Results: 01/07/20 04:44 01/07/20 04:44 01/07/20 01/07/20 04:44 04:44 WBC 5.7 RBC 3.07 L Hgb 9.0 L Hct 26.3 L MCV 86 MCH 29.2 MCHC 34.0 RDW 15.4 H Plt Count 252 Seg Neutrophils % 56.8 Sodium 138.8 Potassium 4.1 Chloride 110 H Carbon Dioxide 24 Anion Gap 5 BUN 21 H Creatinine 0.97 Est GFR ( Amer) > 60 Glucose 78 Calcium 8.8 01/05/20 13:10 Clean Catch Midstream Urine Culture - Final Mixed Urogenital Claribel 01/05/20 01/05/20 12:49 12:49 Creatine Kinase 30 L CK-MB (CK-2) 0.81 Troponin I < 0.012 Impressions: Chest X-Ray 01/05/20 14:10 IMPRESSION: NO ACUTE RADIOGRAPHIC FINDING IN THE CHEST. Assessment and Plan - Diagnosis (1) Acute blood loss anemia Is this a current diagnosis for this admission?: Yes Plan: Patient received 2 units packed red blood cell transfusion on January 05. His hemoglobin increased although it has since drifted down. Patient is for EGD today. Still has some degree of azotemia although this is resolving (2) Hypertension Is this a current diagnosis for this admission?: Yes Plan: His blood pressure is still poorly controlled. We will adjust his medications. (3) Upper gastrointestinal hemorrhage Is this a current diagnosis for this admission?: Yes Plan: S/p transfusion 2 PRBC. (4) CAD (coronary artery disease) Qualifiers: Coronary Disease-Associated Artery/Lesion type: [place] artery Is this a current diagnosis for this admission?: Yes Plan: Cont his lisinopril, beta-blockers statins. Hold antiplatelets given acute GI bleed. (5) UTI (urinary tract infection) Qualifiers: Urinary tract infection type: acute cystitis Is this a current diagnosis for this admission?: Yes Plan: Urine culture yielded an urogenital organisms. Patient is on day 3 of Keflex. I will continue his same and treat him empirically - Plan Summary Summary: I think it is reasonable to monitor this elderly gentleman at least overnight to make sure his hemoglobin is stable especially since there was a downward trend today. If he remains stable and his blood pressure is improved he likely can be discharged home in a.m.
[2020-01-07] MEDS ORDERED: NORMAL SALINE 1000 ML 1,000 ML IV PRN (15:55)
[2020-01-07] MEDS: ATORVASTATIN CALCIUM 40 MG TABLET PO SCH (22:11)
[2020-01-08 04:43] LABS: ABSOLUTE EOSINOPHILS # (AUTO) 0.5 10^3/uL (0.0-0.6); ABSOLUTE LYMPHOCYTES (AUTO) 1.7 10^3/uL (0.5-4.7); ABSOLUTE MONOCYTES (AUTO) 0.5 10^3/uL (0.1-1.4); ABSOLUTE NEUT (AUTO) 2.9 10^3/uL (1.7-8.2); BASOPHILS % (AUTO) 0.6 % (0-2); EOSINOPHILS % (AUTO) 8.2 % (0-6); HEMATOCRIT 24.1 % (37.9-51.0); HEMOGLOBIN 8.3 g/dL (13.5-17.0); LYMPHOCYTES % (AUTO) 30.2 % (13-45); MEAN CORPUSCULAR HEMOGLOBIN 29.4 pg (27.0-33.4); MEAN CORPUSCULAR HGB CONC 34.3 g/dL (32.0-36.0); MEAN CORPUSCULAR VOLUME 86 fl (80-97); MONOCYTES % (AUTO) 9.3 % (3-13); PLATELET COUNT 266 10^3/uL (150-450); RED BLOOD COUNT 2.81 10^6/uL (4.35-5.55); RED CELL DISTRIBUTION WIDTH 15.3 % (11.5-14.0); SEGMENTED NEUTROPHILS % (AUTO) 51.7 % (42-78); TOTAL CELLS COUNTED % (AUTO) 100 %; WHITE BLOOD COUNT 5.5 10^3/uL (4.0-10.5)
[2020-01-08 04:59] LABS: ANION GAP 5 (5-19); BLOOD UREA NITROGEN 16 mg/dL (7-20); CALCIUM 8.5 mg/dL (8.4-10.2); CARBON DIOXIDE 23 mmol/L (22-30); CHLORIDE 111 mmol/L (98-107); GLUCOSE 90 mg/dL (75-110); POTASSIUM 4.1 mmol/L (3.6-5.0)
[2020-01-08] MEDS: CEPHALEXIN 500 MG CAPSULE PO SCH ×2 (05:34→15:06)
[2020-01-08] MEDS: PANTOPRAZOLE SODIUM 40 MG TABLET.DR PO SCH ×2 (05:35→16:52)
[2020-01-08] MEDS: INSULIN LISPRO 100 UNIT/ML 3 ML VIAL SUBCUT SCH ×3 (08:48→16:44)
[2020-01-08] MEDS ORDERED: LISINOPRIL 10 MG TABLET PO SCH (10:00)
[2020-01-08] MEDS: METOPROLOL SUCCINATE 25 MG TAB.SR.24H PO SCH (10:44)
[2020-01-08] MEDS: CYANOCOBALAMIN (VITAMIN B-12) INJ 1000 MCG/1 ML VIAL IM SCH (10:49)
[2020-01-08 15:13] LABS: HEMOGLOBIN 9.2 g/dL (13.5-17.0); MEAN CORPUSCULAR HEMOGLOBIN 29.6 pg (27.0-33.4); MEAN CORPUSCULAR HGB CONC 34.1 g/dL (32.0-36.0); MEAN CORPUSCULAR VOLUME 87 fl (80-97); PLATELET COUNT 307 10^3/uL (150-450); RED BLOOD COUNT 3.11 10^6/uL (4.35-5.55); RED CELL DISTRIBUTION WIDTH 15.4 % (11.5-14.0); WHITE BLOOD COUNT 5.3 10^3/uL (4.0-10.5)
[2020-01-08 16:23] VITALS: BP 150/90
--- NOTE | 2020-01-11 18:12 | PDOC DISCHARGE SUMMARY ---
Impression - Admit/DC Date/PCP Admission Date/Primary Care Provider: 01/07/20 13:07 MARYBETH MC MD Discharge Date: 01/11/20 - Discharge Diagnosis (1) Acute blood loss anemia Is this a current diagnosis for this admission?: Yes (2) CAD (coronary artery disease) Is this a current diagnosis for this admission?: Yes (3) Hypertension Is this a current diagnosis for this admission?: Yes (4) UTI (urinary tract infection) Is this a current diagnosis for this admission?: Yes (5) Upper gastrointestinal hemorrhage Is this a current diagnosis for this admission?: Yes - Additional Information Resuscitation Status: Full Code Discharge Diet: As Tolerated, Regular Discharge Activity: Activity As Tolerated, Balance Activity w/Rest, Slowly Increase Activity Referrals: MARYBETH MC MD [Primary Care Provider] - 01/11/20 4:00 pm Prescriptions: Cephalexin Monohydrate [Keflex 500 mg Capsule] 500 mg PO Q8 #10 capsule Pantoprazole Sodium [Protonix [address] Tablet] 40 mg PO BID@0600,1700 #60 [address].dr Home Medications: Atorvastatin Calcium [Lipitor 40 mg Tablet] 40 mg PO QHS 01/05/20 Lisinopril [Zestril] 10 mg PO DAILY 01/05/20 Metformin HCl [Glucophage] 1,000 mg PO Q12 01/05/20 Metoprolol Succinate [Toprol Xl 25 mg Tab.sr] 12.5 mg PO DAILY 01/05/20 Acetaminophen [Tylenol 325 mg Tablet] 325 mg PO Q4HP PRN tablet 01/08/20 Cephalexin Monohydrate [Keflex 500 mg Capsule] 500 mg PO Q8 #10 capsule 01/08/20 Pantoprazole Sodium [Protonix [address] Tablet] 40 mg PO BID@0600,1700 #60 tablet. 01/08/20 History of Present Illiness History of Present Illness: Per H&P by Dr. Michel:LUIS ENRIQUE KWONG is a 84 year old male past medical history of CAD status post stent placement x6 years, diabetes, hypertension, hyperlipidemia, presenting to ED complaining of fatigue and loss of energy for the last 3 to 4 days. Patient has been constipated for the last several days, 3 days ago was a started on some bowel regimen after which he had a bowel movement and says that he has noticed that he is feeling progressively weak and has to take breaks when doing his ADLs. Denies any history of anemia, not on iron supplement, denies noticing any melena, nosebleeds, hematuria, hematochezia, hematemesis, easy bruising, easy bleeding, nosebleeds, GERD, GI malignancy, does not remember if he had a colonoscopy in the past, has noticed some weight changes and also early satiety for the last several months. Denies any chest pain, shortness of breath, nausea, vomiting, diarrhea, numbness, tingling, headache, focal neurological symptoms, or any urinary symptoms. In ED he was found to have hemoglobin of 6.2, with a stool guaiac positive and [facility] was consulted for admission. Hospital Course Hospital Course: (1) Acute blood loss anemia Patient received 2 units packed red blood cell transfusion on January 05. Hemoglobin is now stable at 9.2. Patient underwent EGD and colonoscopy on 01/07/[address] Truong; no abnormal findings identified. Patient was started on clear liquid diet and cautiously advanced; tolerated well without recurrence of melena. He is now hemodynamically stable, asymptomatic, and ready for discharge to home into the care of family members. He is advised to hold his Plavix and ASA for 30 days and to review this medication with his primary care provider before resuming. (2) Hypertension Blood pressure is adequately controlled on lisinopril 10 mg daily and Toprol-XL 12.5 mg daily. Further adjustments to be made by PCP. (3) Upper gastrointestinal hemorrhage Resolved. Evaluation management as above. (4) CAD (coronary artery disease) Patient is discharged on Lisinopril, Toprol, and atorvastatin. He is instructed to hold his Plavix and aspirin for minimum of 30 days and to review these medications with PCP prior to resuming. (5) UTI (urinary tract infection) Urine culture yielded an urogenital organisms. He is discharged with a prescription for Keflex to complete full course of antibiotic therapy. Physical Exam Vital Signs: Temp Pulse Resp BP Pulse Ox 98.2 F 66 16 150/90 H 88 L 01/08/20 16:20 01/08/20 16:20 01/08/20 16:20 01/08/20 16:20 01/08/20 16:20 General appearance: PRESENT: no acute distress, cooperative, thin, well- developed, well-nourished Head exam: PRESENT: atraumatic, normocephalic Eye exam: PRESENT: conjunctiva pink, EOMI, PERRLA. ABSENT: scleral icterus Mouth exam: PRESENT: moist, tongue midline Respiratory exam: PRESENT: clear to auscultation viviana, symmetrical, unlabored. ABSENT: rales, rhonchi, wheezes Cardiovascular exam: PRESENT: RRR, +S1, +S2. ABSENT: diastolic murmur, rubs, systolic murmur Pulses: PRESENT: normal dorsalis pedis pul Vascular exam: PRESENT: normal capillary refill GI/Abdominal exam: PRESENT: normal bowel sounds, soft. ABSENT: distended, guarding, mass, organolmegaly, rebound, tenderness Rectal exam: PRESENT: deferred Extremities exam: PRESENT: full ROM. ABSENT: calf tenderness, clubbing, pedal edema Musculoskeletal exam: PRESENT: ambulatory Neurological exam: PRESENT: alert, awake, oriented to person, oriented to place, oriented to time, oriented to situation, CN II-XII grossly intact. ABSENT: motor sensory deficit Psychiatric exam: PRESENT: appropriate affect, normal mood. ABSENT: homicidal ideation, suicidal ideation Skin exam: PRESENT: dry, intact, warm. ABSENT: cyanosis, rash Results Laboratory Results: WBC 5.3 10^3/uL (4.0-10.5) 01/08/20 14:42 RBC 3.11 10^6/uL (4.35-5.55) L 01/08/20 14:42 Hgb 9.2 g/dL (13.5-17.0) L 01/08/20 14:42 Hct 27.0 % (37.9-51.0) L 01/08/20 14:42 MCV 87 fl (80-97) 01/08/20 14:42 MCH 29.6 pg (27.0-33.4) 01/08/20 14:42 MCHC 34.1 g/dL (32.0-36.0) 01/08/20 14:42 RDW 15.4 % (11.5-14.0) H 01/08/20 14:42 Plt Count 307 10^3/uL (150-450) 01/08/20 14:42 Lymph % (Auto) 30.2 % (13-45) 01/08/20 04:29 Ogle % (Auto) 9.3 % (3-13) 01/08/20 04:29 Eos % (Auto) 8.2 % (0-6) H 01/08/20 04:29 Baso % (Auto) 0.6 % (0-2) 01/08/20 04:29 Reticulocyte # 0.034 10^6/uL (0.028-0.122) 01/05/20 12:49 Absolute Neuts (auto) 2.9 10^3/uL (1.7-8.2) 01/08/20 04:29 Absolute Lymphs (auto) 1.7 10^3/uL (0.5-4.7) 01/08/20 04:29 Absolute Monos (auto) 0.5 10^3/uL (0.1-1.4) 01/08/20 04:29 Absolute Eos (auto) 0.5 10^3/uL (0.0-0.6) 01/08/20 04:29 Absolute Basos (auto) 0.0 10^3/uL (0.0-0.2) 01/08/20 04:29 Seg Neutrophils % 51.7 % (42-78) 01/08/20 04:29 Retic Count (auto) 1.62 % (0.66-2.85) 01/05/20 12:49 Sodium 139.4 mmol/L (137-145) 01/08/20 04:29 Potassium 4.1 mmol/L (3.6-5.0) 01/08/20 04:29 Chloride 111 mmol/L (98-107) H 01/08/20 04:29 Carbon Dioxide 23 mmol/L (22-30) 01/08/20 04:29 Anion Gap 5 (5-19) 01/08/20 04:29 BUN 16 mg/dL (7-20) 01/08/20 04:29 Creatinine 1.03 mg/dL (0.52-1.25) 01/08/20 04:29 Est GFR ( Amer) > 60 (>60) 01/08/20 04:29 Est GFR (MDRD) Non-Af > 60 (>60) 01/08/20 04:29 Glucose 90 mg/dL (75-110) 01/08/20 04:29 POC Glucose 152 mg/dL (70-110) H 01/08/20 16:29 Hemoglobin A1c % 6.8 % (4.7-6.0) H 01/06/20 02:59 Calcium 8.5 mg/dL (8.4-10.2) 01/08/20 04:29 Magnesium 2.0 mg/dL (1.6-2.3) 01/06/20 02:59 Iron 29.0 ug/dL (49-181) L 01/05/20 12:49 TIBC 302 ug/dL (250-450) 01/05/20 12:49 % Saturation 10 % 01/05/20 12:49 Ferritin 13.50 ng/mL (17.9-464.0) L 01/05/20 12:49 Total Bilirubin 0.2 mg/dL (0.2-1.3) 01/05/20 12:49 Direct Bilirubin 0.2 mg/dL (0.0-0.4) 01/05/20 12:49 Neonat Total Bilirubin Not Reportable 01/05/20 12:49 Neonat Direct Bilirubin Not Reportable 01/05/20 12:49 Neonat Indirect Bili Not Reportable 01/05/20 12:49 AST 22 U/L (17-59) 01/05/20 12:49 ALT 11 U/L (<50) 01/05/20 12:49 Alkaline Phosphatase 47 U/L (38-126) 01/05/20 12:49 Creatine Kinase 30 U/L (55-170) L 01/05/20 12:49 CK-MB (CK-2) 0.81 ng/mL (<4.55) 01/05/20 12:49 Troponin I < 0.012 ng/mL 01/05/20 12:49 Total Protein 6.2 g/dL (6.3-8.2) L 01/05/20 12:49 Albumin 3.1 g/dL (3.5-5.0) L 01/05/20 12:49 Triglycerides 113 mg/dL (<150) 01/06/20 02:59 Cholesterol 108.01 mg/dL (0-200) 01/06/20 02:59 LDL Cholesterol Direct 58 mg/dL (<100) 01/06/20 02:59 VLDL Cholesterol 23.0 mg/dL (10-31) 01/06/20 02:59 HDL Cholesterol 38 mg/dL (>40) L 01/06/20 02:59 Vitamin B12 < 159.0 pg/mL (239-931) L 01/05/20 12:49 Folate 4.99 ng/mL (>2.76) 01/05/20 12:49 Urine Color YELLOW 01/05/20 13:10 Urine Appearance SLIGHTLY-CLOUDY 01/05/20 13:10 Urine pH 5.0 (5.0-9.0) 01/05/20 13:10 Ur Specific Labelle 1.015 01/05/20 13:10 Urine Protein NEGATIVE mg/dL (NEGATIVE) 01/05/20 13:10 Urine Glucose (UA) NEGATIVE mg/dL (NEGATIVE) 01/05/20 13:10 Urine Ketones NEGATIVE mg/dL (NEGATIVE) 01/05/20 13:10 Urine Blood NEGATIVE (NEGATIVE) 01/05/20 13:10 Urine Nitrite NEGATIVE (NEGATIVE) 01/05/20 13:10 Urine Bilirubin NEGATIVE (NEGATIVE) 01/05/20 13:10 Urine Urobilinogen NEGATIVE mg/dL (<2.0) 01/05/20 13:10 Ur Leukocyte Esterase MODERATE (NEGATIVE) H 01/05/20 13:10 Urine WBC (Auto) 15 /HPF 01/05/20 13:10 Urine RBC (Auto) 1 /HPF 01/05/20 13:10 U Hyaline Cast (Auto) 1 /LPF 01/05/20 13:10 Squamous Epi Cells Auto 1 /HPF 01/05/20 13:10 Urine Mucus (Auto) RARE /LPF 01/05/20 13:10 Urine Ascorbic Acid NEGATIVE (NEGATIVE) 01/05/20 13:10 POC Stool Occult Blood POSITIVE (NEGATIVE) 01/05/20 14:07 Intrinsic Factor Ab 17.1 AU/mL (0.0-1.1) H 01/06/20 02:59 Blood Type A POSITIVE 01/05/20 14:13 Blood Type Confirm A POSITIVE 01/05/20 15:58 Antibody Screen NEGATIVE 01/05/20 14:13 Crossmatch See Detail 01/05/20 14:13 01/05/20 12:49 CK-MB (CK-2) 0.81 Troponin I < 0.012 Impressions: Chest X-Ray 01/05/20 14:10 IMPRESSION: NO ACUTE RADIOGRAPHIC FINDING IN THE CHEST. Plan Plan of Treatment: Follow-up with primary care provider within 1 week. Complete course of antibiotic therapy for treatment of UTI. Continue Protonix twice daily for the next month. Do not take Plavix for the next 30 days; discussed this medication with your provider before resuming this medication. Return to the emergency department as needed for concerning symptoms. Time Spent: Greater than 30 Minutes Stroke Is this a Stroke Patient?: No Acute Heart Failure - Is this a Heart Failure Patient?: No
== END 2020-01-08 16:55 | disposition home or self-care (01) | DRG 378 ==
LOC: ER 12:27 → INTOOBSV 14:46 → EH 14:46 → 5 17:43 → OBSVTOIN 01-07 13:07
PROVIDERS: ADMIT Internal Medicine; ATTEND Internal Medicine
PROC: 30233N1 Transfusion of Nonautologous Red Blood Cells into Peripheral Vein, Percutaneous Approach (ICD-10-PCS; 2020-01-05)
PROC: 0DJ08ZZ Inspection of Upper Intestinal Tract, Via Natural or Artificial Opening Endoscopic (ICD-10-PCS; principal; 2020-01-07 13:00)
PROC: 0DJD8ZZ Inspection of Lower Intestinal Tract, Via Natural or Artificial Opening Endoscopic (ICD-10-PCS; 2020-01-07 13:00)
DX: K92.1 Melena (principal); N39.0 Urinary tract infection, site not specified; D62 Acute posthemorrhagic anemia; I25.10 Atherosclerotic heart disease of native coronary artery without angina pectoris; R63.4 Abnormal weight loss; Z95.5 Presence of coronary angioplasty implant and graft; E11.9 Type 2 diabetes mellitus without complications; I10 Essential (primary) hypertension; E78.5 Hyperlipidemia, unspecified; K59.00 Constipation, unspecified; Z79.899 Other long term (current) drug therapy; Z79.84 Long term (current) use of oral hypoglycemic drugs
CPT/HCPCS: 36415; 36430; 43235; 45378; 71045; 80048; 80053; 80061; 81001; 82550; 82553; 82607; 82728; 82746; 82962; 83036; 83540; 83550; 83735; 83921; 84484; 85025; 85045; 86340; 86850; 86900; 86901; 86920; 87086; 93005; 93010; 99285; J0610; G0378; J0171; J0360; J1200; J1610; J2250; J2310; J2405; J2704; J3010; J3420; J3490; J7030; P9016